=== PATIENT | female | born 1950 | race Caucasian/White ===

== ENCOUNTER 2017-07-16 15:22 | Inpatient (IN) | payer OTHER ==
[~2017-07-16] VITALS: Ht 157.5 cm; Wt 96.7 kg
[~2017-07-16 15:22] MED LIST: ASPIR 8181 M1 PO; AUGMENTIN875 MG PO; BACTRIM,SEPT1 TABLET PO; Betapace,Sorine PO; CALCIUM 500 MG1 EACH PO; CALCIUM 600 +1 EAC4 PO; COMPAZINE10 MG PO; COUMADIN5 MG PO; CUBICIN500 MG/10 IV; CYMBALTA60 MG PO; Coumadin Daily Dose PO; DAPTOMYCIN IV; DICLOFENAC SODI75 MG PO; DITROPAN5 MG PO; DULOXETINE HCL30 MG PO; Ditropan PO; FLORA-Q CAPSUL1 EACH PO; HYDROCODON-ACE1 EAC7 PO; KLOR-CON 1010 ME1 PO; LASIX20 MG PO; LISINOPRIL20 MG PO; LISINOPRIL40 MG PO; LOMOTIL TABLET1 EACH PO; LYRICA150 MG PO; LYRICA75 MG PO; METHADOSE10 MG PO; MULTI FOR HER1 EACH PO; MYCOSTATIN 100,60 ML PO; Micro-K,K-Tab,K-Dur, PO; OXYBUTYNIN CHLOR5 MG PO; OXYCONTIN20 MG PO; PRAVASTATIN SOD40 MG PO; RANITIDINE HCL150 MG PO; TOPAMAX100 MG PO; TYLENOL WITH C1 EACH PO; Topamax PO; Ultram PO; VICODIN 5-3001 EACH PO
[2017-07-16 16:38] LABS: ADD MIUA? YES; BILIRUBIN NEGATIVE; BLOOD SMALL; COLOR YELLOW ((YELLOW)); GLUCOSE (STRIP) 50; KETONES 5; LEUKOCYTES NEGATIVE; NITRITE NEGATIVE; PROTEIN (STRIP) NEGATIVE; SPECIFIC GRAVITY 1.017 (1.000-1.030); UROBILINOGEN 0.2 MG/DL (0.2-1.0)
[2017-07-16 16:45] LABS: BACTERIA RARE /HPF; EPITHELIAL CELLS RARE /HPF; GRANULAR CASTS 0-5 /LPF; MUCUS TRACE /LPF; RED BLOOD CELLS 0-5 /HPF (0-5); UCUL ADDED? YES
[2017-07-16 16:58] LABS: MCH 31.4 PG (29.0-34.0); MCHC 33.5 G/DL (30.0-36.0); MCV 93.7 FL (83-99); MEAN PLAT.VOLUME 11.2 uM^3 (9.5-12.4); NRBC (%) 0.5 /100 WBC (0-0); PLATELET COUNT 112 K/uL (156-360); RBC DIS.WIDTH-CV 13.8 % (11.8-14.6); RBC DIS.WIDTH-SD 45.8 % (39-53); RED BLOOD COUNT 3.95 M/uL (3.80-5.20)
[2017-07-16 17:10] LABS: CHLORIDE 104 mEq/L (99-109); POTASSIUM 3.7 mEq/L (3.7-5.4); SODIUM 139 mEq/L (136-147)
[2017-07-16 17:12] LABS: GLUCOSE 93 mg/dL (70-99)
[2017-07-16 17:13] LABS: ANION GAP 8 MEQ/L (2-14)
[2017-07-16 17:15] LABS: GFR ESTIMATE (CALCULATED) > 59 mL/min/
[2017-07-16 17:16] LABS: UREA NITROGEN (BUN) 26 mg/dL (9-23)
[2017-07-16 17:18] LABS: TROP-I INTERPRETATION NEGATIVE; TROPONIN-I 0.04 ng/mL (0.0-0.30)
[2017-07-16 22:10] VITALS: BP 111/74
[2017-07-17] VITALS: BP 137/80
[2017-07-17 02:10] LABS: TROP-I INTERPRETATION NEGATIVE; TROPONIN-I 0.04 ng/mL (0.0-0.30)
[2017-07-17 04:00] VITALS: BP 128/76
[2017-07-17 07:02] LABS: BASOPHIL COUNT 0.1 K/uL (0-0.1); EOSINOPHIL (%) 0 % (0-5); HEMATOCRIT 35.3 % (36.0-46.0); IMMATURE GRANULOCYTE (%) 2.9 % (0.0-0.7); IMMATURE GRANULOCYTE COUNT 0.4 K/uL; INSTRUMENT ABS NEUTROPHIL CT 11.4 K/uL; MCH 32.5 PG (29.0-34.0); MCHC 33.7 G/DL (30.0-36.0); MCV 96.4 FL (83-99); MONOCYTE (%) 8.5 % (3-12); MONOCYTE COUNT 1.3 K/uL (0-0.8); NEUTROPHIL COUNT 11.4 K/uL (1.8-6.4); NRBC (%) 0.1 /100 WBC (0-0); PLATELET COUNT 111 K/uL (156-360); RBC DIS.WIDTH-CV 14.4 % (11.8-14.6); RBC DIS.WIDTH-SD 48.8 % (39-53); RED BLOOD COUNT 3.66 M/uL (3.80-5.20); WHITE BLOOD COUNT 15.2 K/uL (4.1-10.2)
[2017-07-17 07:26] LABS: ANION GAP 9 MEQ/L (2-14); CHLORIDE 107 MEQ/L (99-109); GFR ESTIMATE (CALCULATED) > 59 mL/min/; GLUCOSE 95 mg/dL (70-99); POTASSIUM 3.8 MEQ/L (3.7-5.4); SAMPLE HEMOLYSIS CHECK 0; SAMPLE ICTERIC CHECK 0; SAMPLE LIPEMIA CHECK 0; SODIUM 142 MEQ/L (136-147); UREA NITROGEN (BUN) 21 mg/dL (9-23)
[2017-07-17 07:30] LABS: TROP-I INTERPRETATION NEGATIVE; TROPONIN-I 0.03 ng/mL (0.0-0.30)
[2017-07-17 07:43] VITALS: BP 123/65
[2017-07-17] MEDS ORDERED: PRAVASTATIN SOD40 MG PO (11:25)
[2017-07-17] MEDS ORDERED: FLUCONAZOLE100 MG PO (11:26)
[2017-07-17] MEDS ORDERED: LOMOTIL TABLET1 EACH PO (11:26)
[2017-07-17] MEDS ORDERED: PRINIVIL20 MG PO (11:27)
[2017-07-17] MEDS ORDERED: CYCLOBENZAPRINE10 MG PO (11:27)
[2017-07-17] MEDS ORDERED: CLARITIN10 M3 PO (11:28)
[2017-07-17] MEDS ORDERED: DILAUDID2 MG PO (11:30)
[2017-07-17] MEDS ORDERED: ACETAMINOPHEN500 M9 PO (11:30)
[2017-07-17 11:32] VITALS: BP 112/58
[2017-07-17 12:38] LABS: TROP-I INTERPRETATION NEGATIVE; TROPONIN-I 0.02 ng/mL (0.0-0.30)
[2017-07-17 15:17] VITALS: BP 119/75
[2017-07-17 20:00] VITALS: BP 123/74
[2017-07-18 00:37] VITALS: BP 118/63
[2017-07-18 04:31] VITALS: BP 116/66
[2017-07-18 05:59] LABS: HEMATOCRIT 34.1 % (36.0-46.0); MCH 32.7 PG (29.0-34.0); MCHC 33.4 G/DL (30.0-36.0); MCV 97.7 FL (83-99); MEAN PLAT.VOLUME 11.2 uM^3 (9.5-12.4); PLATELET COUNT 109 K/uL (156-360); RBC DIS.WIDTH-CV 14.5 % (11.8-14.6); RED BLOOD COUNT 3.49 M/uL (3.80-5.20); WHITE BLOOD COUNT 14.2 K/uL (4.1-10.2)
[2017-07-18 06:35] LABS: ANION GAP 6 MEQ/L (2-14); CHLORIDE 106 MEQ/L (99-109); GFR ESTIMATE (CALCULATED) > 59 mL/min/; GLUCOSE 92 mg/dL (70-99); POTASSIUM 3.8 MEQ/L (3.7-5.4); SAMPLE HEMOLYSIS CHECK 0; SAMPLE ICTERIC CHECK 0; SAMPLE LIPEMIA CHECK 0; SODIUM 141 MEQ/L (136-147); UREA NITROGEN (BUN) 13 mg/dL (9-23)
[2017-07-18 08:05] VITALS: BP 120/65
[2017-07-18 11:27] LABS: Estimated Average Glucose 128 mg/dL (70-123); HEMOGLOBIN A1c (GLYCOHEMOGLOB) 6.1 % HGB (Below 5.7)
[2017-07-18 16:15] VITALS: BP 123/71
[2017-07-18 19:31] VITALS: BP 125/75
[2017-07-18 23:35] VITALS: BP 140/86
[2017-07-19 04:33] VITALS: BP 117/71
[2017-07-19 06:20] LABS: HEMATOCRIT 33.6 % (36.0-46.0); MCH 31.8 PG (29.0-34.0); MCHC 32.4 G/DL (30.0-36.0); PLATELET COUNT 113 K/uL (156-360); RBC DIS.WIDTH-CV 14.4 % (11.8-14.6); RBC DIS.WIDTH-SD 49.8 % (39-53); RED BLOOD COUNT 3.43 M/uL (3.80-5.20); WHITE BLOOD COUNT 10.2 K/uL (4.1-10.2)
[2017-07-19 07:51] LABS: ANION GAP 6 MEQ/L (2-14); CHLORIDE 105 MEQ/L (99-109); GFR ESTIMATE (CALCULATED) > 59 mL/min/; GLUCOSE 88 mg/dL (70-99); POTASSIUM 3.6 MEQ/L (3.7-5.4); SAMPLE HEMOLYSIS CHECK 0; SAMPLE ICTERIC CHECK 0; SAMPLE LIPEMIA CHECK 0; SODIUM 141 MEQ/L (136-147); UREA NITROGEN (BUN) 11 mg/dL (9-23)
[2017-07-19 08:46] VITALS: BP 119/72
[2017-07-19 15:32] VITALS: BP 123/63
[2017-07-19 23:38] VITALS: BP 110/74
[2017-07-20 08:35] VITALS: BP 123/81
[2017-07-20 09:14] LABS: HEMATOCRIT 35.8 % (36.0-46.0); MCH 31.3 PG (29.0-34.0); MCHC 32.7 G/DL (30.0-36.0); MCV 95.7 FL (83-99); MEAN PLAT.VOLUME 10.8 uM^3 (9.5-12.4); RBC DIS.WIDTH-CV 13.9 % (11.8-14.6); RBC DIS.WIDTH-SD 47.3 % (39-53); RED BLOOD COUNT 3.74 M/uL (3.80-5.20)
[2017-07-20 09:15] LABS: PLATELET COUNT 163 K/uL (156-360)
[2017-07-20 16:16] VITALS: BP 132/79
[2017-07-20 23:54] VITALS: BP 123/74
[2017-07-21] MEDS ORDERED: FLUCONAZOLE200 MG PO (07:45)
[2017-07-21] MEDS ORDERED: Magic Mouthwash Garg MM (07:46)
[2017-07-21 08:24] VITALS: BP 139/84
== END 2017-07-21 14:56 | disposition home or self-care (01) | DRG 871 ==
LOC: EME 15:22 → 5SOUTH 20:44 → EDOF 20:44 → ENRESERV 20:45 → 5SOUTH 22:04
PROVIDERS: Emergency Medicine; Hospitalist; Nurse Practitioner Adult Health; Physician Assistant Medical
DX: A41.9 Sepsis, unspecified organism (principal); G93.40 Encephalopathy, unspecified; B37.0 Candidal stomatitis; K12.31 Oral mucositis (ulcerative) due to antineoplastic therapy; F33.9 Major depressive disorder, recurrent, unspecified; R65.10 Systemic inflammatory response syndrome (SIRS) of non-infectious origin without acute organ dysfunction; C50.112 Malignant neoplasm of central portion of left female breast; E86.0 Dehydration; E04.1 Nontoxic single thyroid nodule; E78.5 Hyperlipidemia, unspecified; G62.9 Polyneuropathy, unspecified; G89.29 Other chronic pain; I10 Essential (primary) hypertension; I73.9 Peripheral vascular disease, unspecified; K59.1 Functional diarrhea; N39.41 Urge incontinence; N28.1 Cyst of kidney, acquired; K74.60 Unspecified cirrhosis of liver; R13.10 Dysphagia, unspecified; R33.9 Retention of urine, unspecified; T45.1X5A Adverse effect of antineoplastic and immunosuppressive drugs, initial encounter; Z17.0 Estrogen receptor positive status [ER+]; Z88.5 Allergy status to narcotic agent; Z90.12 Acquired absence of left breast and nipple; Z90.710 Acquired absence of both cervix and uterus; Z88.6 Allergy status to analgesic agent; Z87.442 Personal history of urinary calculi; Z80.9 Family history of malignant neoplasm, unspecified; Z85.72 Personal history of non-Hodgkin lymphomas
CPT/HCPCS: 70450; 71010; 71275; 74176; 80048; 81003; 83036; 83605; 84484; 85025; 85027; 85379; 87040; 87086; 87493; 93970; 96361; 96374; 99281; 99285; C9113; J0692; J0696; J1450; J1650; J2405; J7030; J7040; J7050

== ENCOUNTER 2017-08-14 12:59 | Inpatient (IN) | payer OTHER ==
[2017-08-14] VITALS (20 sets, daily range): BP systolic 67–124; BP diastolic 36–76
[~2017-08-14] VITALS: Ht 177.8 cm; Wt 94.4 kg
[~2017-08-14 12:59] MED LIST changes: +ACETAMINOPHEN500 M9 PO; +CLARITIN10 M3 PO; +CYCLOBENZAPRINE10 MG PO; +DILAUDID2 MG PO; +FLUCONAZOLE100 MG PO; +FLUCONAZOLE200 MG PO; -MULTI FOR HER1 EACH PO; +Magic Mouthwash Garg MM; +PRINIVIL20 MG PO; +WOMEN'S DAILY1 EAC2 PO
[2017-08-14 14:06] LABS: HEMATOCRIT 28.5 % (36.0-46.0); MCH 31.7 PG (29.0-34.0); MCV 93.1 FL (83-99); NRBC (%) 0.3 /100 WBC (0-0); RBC DIS.WIDTH-CV 15.9 % (11.8-14.6); RBC DIS.WIDTH-SD 50.4 % (39-53); RED BLOOD COUNT 3.06 M/uL (3.80-5.20); WHITE BLOOD COUNT 7.9 K/uL (4.1-10.2)
[2017-08-14 14:10] LABS: INTER. NORMALIZED RATIO 1.3; PROTHROMBIN TIME 14.3 SEC (10.2-12.9)
[2017-08-14 14:12] LABS: PTT 31.6 SEC (25-37)
[2017-08-14 14:13] LABS: CHLORIDE 103 mEq/L (99-109); SODIUM 137 mEq/L (136-147)
[2017-08-14 14:16] LABS: ANION GAP 12 MEQ/L (2-14)
[2017-08-14 14:18] LABS: GFR ESTIMATE (CALCULATED) 11 mL/min/
[2017-08-14 14:19] LABS: UREA NITROGEN (BUN) 78 mg/dL (9-23)
[2017-08-14 14:24] LABS: GLUCOSE 119 mg/dL (70-99)
[2017-08-14 14:34] LABS: POTASSIUM 7.3 mEq/L (3.7-5.4); TROP-I INTERPRETATION NEGATIVE; TROPONIN-I 0.03 ng/mL (0.0-0.30)
[2017-08-14 15:00] LABS: EOSINOPHIL (%) 0 % (0-5); IMM.PLATELET FRACTION 26.7 (1-7); IMMATURE GRANULOCYTE (%) 0.8 % (0.0-0.7); IMMATURE GRANULOCYTE COUNT 0.1 K/uL; INSTRUMENT ABS NEUTROPHIL CT 5.2 K/uL; LYMPHOCYTE COUNT 2.2 K/uL (1.0-2.8); MONOCYTE (%) 6.4 % (3-12); MONOCYTE COUNT 0.5 K/uL (0-0.8); NEUTROPHIL (%) 64.8 % (45-76); NEUTROPHIL COUNT 5.2 K/uL (1.8-6.4); PLAT.SUFFICIENCY VERY DECREASED
[2017-08-14 15:02] LABS: MEAN PLAT.VOLUME 10.8 uM^3 (9.5-12.4); PLATELET COUNT 2 K/uL (156-360)
[2017-08-14 16:03] LABS: ADD MIUA? YES; BILIRUBIN NEGATIVE; BLOOD NEGATIVE; COLOR YELLOW ((YELLOW)); GLUCOSE (STRIP) NEGATIVE; KETONES NEGATIVE; LEUKOCYTES NEGATIVE; NITRITE NEGATIVE; PROTEIN (STRIP) 30; SPECIFIC GRAVITY 1.015 (1.000-1.030); UROBILINOGEN 0.2 MG/DL (0.2-1.0)
[2017-08-14 16:04] LABS: HEMATOCRIT 17.3 % (36.0-46.0); MCH 31.5 PG (29.0-34.0); MCHC 33.5 G/DL (30.0-36.0); RBC DIS.WIDTH-CV 15.9 % (11.8-14.6); RBC DIS.WIDTH-SD 51.1 % (39-53); RED BLOOD COUNT 1.84 M/uL (3.80-5.20); WHITE BLOOD COUNT 8.3 K/uL (4.1-10.2)
[2017-08-14 16:15] LABS: BACTERIA NONE SEEN /HPF; EPITHELIAL CELLS RARE /HPF; MUCUS NONE SEEN /LPF; RED BLOOD CELLS 0-5 /HPF (0-5); UCUL ADDED? NO; WHITE BLOOD CELLS 0-5 /HPF (0-5)
[2017-08-14 16:38] LABS: POINT-OF-CARE METER ID UU13113747
[2017-08-14 16:43] LABS: HEMATOCRIT 17.3 % (36.0-46.0); MCH 32.2 PG (29.0-34.0); MCHC 34.1 G/DL (30.0-36.0); MCV 94.5 FL (83-99); RBC DIS.WIDTH-CV 16.2 % (11.8-14.6); RED BLOOD COUNT 1.83 M/uL (3.80-5.20)
[2017-08-14 16:46] LABS: PLAT.SUFFICIENCY VERY DECREASED
[2017-08-14 16:50] LABS: PLATELET COUNT 3 K/uL (156-360)
[2017-08-14 17:43] LABS: HEMATOLOGY COMMENT 1 SN; PLAT.SUFFICIENCY VERY DECREASED; PLATELET COUNT 5 K/uL (156-360)
[2017-08-14 17:45] LABS: ABS NEUTROPHIL COUNT 7.8; ANISOCYTOSIS 1+; ATYPICAL LYMPHOCYTE 11.1 %; BAND NEUTROPHILS 1.9 % (0-8.0); EOSINOPHIL ABS CT 0; HYPOCHROMASIA 1+; LYMPHOCYTES 1.8 % (15.0-45.0); METAMYELOCYTES 0.9 %; SEG.NEUTROPHILS 84.3 % (46.0-76.0); SMUDGE CELLS 49.1; TEAR DROP CELLS 1+
[2017-08-14] MEDS ORDERED: FUROSEMIDE20 MG PO (17:59)
[2017-08-14] MEDS ORDERED: FLEXERIL10 MG PO (17:59)
[2017-08-14] MEDS ORDERED: PROBIOTIC1 EAC1 PO (18:00)
[2017-08-14] MEDS ORDERED: VASHE WOUND S1000 ML IR (18:00)
[2017-08-14] MEDS ORDERED: BACTROBAN OINTM22 GM TP (18:00)
[2017-08-14] MEDS ORDERED: DECADRON4 MG PO (18:01)
[2017-08-14] MEDS ORDERED: LIDOCAINE-PRIL1 EACH TP (18:02)
[2017-08-14] MEDS ORDERED: MAGNESIUM400 M1 PO (18:02)
[2017-08-14] MEDS ORDERED: BACTRIM,SEPT1 TABLET PO (18:03)
[2017-08-14 19:33] LABS: METH RESISTANT S AUREUS PCR NEGATIVE (NEGATIVE)
[2017-08-14 19:34] LABS: PROBE CHECK PASS
[2017-08-14 19:35] LABS: SPECIMEN PROCESSING CONTROL PASS
[2017-08-14 20:33] LABS: ANION GAP 9 MEQ/L (2-14); CHLORIDE 108 MEQ/L (99-109); GLUCOSE 134 mg/dL (70-99); SAMPLE HEMOLYSIS CHECK 0; SAMPLE ICTERIC CHECK 0; SAMPLE LIPEMIA CHECK 0; SODIUM 139 MEQ/L (136-147); UREA NITROGEN (BUN) 73 mg/dL (9-23)
[2017-08-14 20:40] LABS: GFR ESTIMATE (CALCULATED) 14 mL/min/; POTASSIUM 5.8 MEQ/L (3.7-5.4)
[2017-08-15] VITALS (28 sets, daily range): BP systolic 89–121; BP diastolic 45–100
[2017-08-15 02:46] LABS: EOSINOPHIL (%) 0 % (0-5); HEMATOCRIT 30.3 % (36.0-46.0); HEMATOLOGY COMMENT 1 SMEAR COMPATIBLE; IMM.PLATELET FRACTION 7.3 (1-7); IMMATURE GRANULOCYTE (%) 0.7 % (0.0-0.7); IMMATURE GRANULOCYTE COUNT 0.1 K/uL; INSTRUMENT ABS NEUTROPHIL CT 12.5 K/uL; MCH 31.8 PG (29.0-34.0); MCHC 34.3 G/DL (30.0-36.0); MCV 92.7 FL (83-99); MEAN PLAT.VOLUME 10.6 uM^3 (9.5-12.4); MONOCYTE (%) 6.5 % (3-12); MONOCYTE COUNT 1.2 K/uL (0-0.8); NEUTROPHIL COUNT 12.5 K/uL (1.8-6.4); NRBC (%) 0.1 /100 WBC (0-0); PLAT.SUFFICIENCY DECREASED; PLATELET COUNT 50 K/uL (156-360); RBC DIS.WIDTH-CV 15.7 % (11.8-14.6); RBC DIS.WIDTH-SD 51.4 % (39-53); RED BLOOD COUNT 3.27 M/uL (3.80-5.20); WHITE BLOOD COUNT 18.9 K/uL (4.1-10.2)
[2017-08-15 05:25] LABS: EOSINOPHIL (%) 0 % (0-5); HEMATOCRIT 29.6 % (36.0-46.0); IMMATURE GRANULOCYTE (%) 0.6 % (0.0-0.7); IMMATURE GRANULOCYTE COUNT 0.1 K/uL; INSTRUMENT ABS NEUTROPHIL CT 10.5 K/uL; LYMPHOCYTE COUNT 5.4 K/uL (1.0-2.8); MCH 32.1 PG (29.0-34.0); MCHC 34.5 G/DL (30.0-36.0); MCV 93.1 FL (83-99); MEAN PLAT.VOLUME 10.9 uM^3 (9.5-12.4); MONOCYTE (%) 7.8 % (3-12); MONOCYTE COUNT 1.4 K/uL (0-0.8); NEUTROPHIL (%) 60.5 % (45-76); NEUTROPHIL COUNT 10.5 K/uL (1.8-6.4); NRBC (%) 0.2 /100 WBC (0-0); PLATELET COUNT 52 K/uL (156-360); RBC DIS.WIDTH-CV 15.8 % (11.8-14.6); RBC DIS.WIDTH-SD 50.7 % (39-53); RED BLOOD COUNT 3.18 M/uL (3.80-5.20); WHITE BLOOD COUNT 17.3 K/uL (4.1-10.2)
[2017-08-15 05:54] LABS: ANION GAP 10 MEQ/L (2-14); CHLORIDE 111 MEQ/L (99-109); POTASSIUM 5.4 MEQ/L (3.7-5.4); SAMPLE HEMOLYSIS CHECK 0; SAMPLE ICTERIC CHECK 0; SAMPLE LIPEMIA CHECK 0; SODIUM 141 MEQ/L (136-147); UREA NITROGEN (BUN) 68 mg/dL (9-23)
[2017-08-15 06:41] LABS: GFR ESTIMATE (CALCULATED) 17 mL/min/; GLUCOSE 94 mg/dL (70-99); MAGNESIUM 2.2 mg/dl (1.3-2.7)
[2017-08-15 15:03] LABS: HEMATOCRIT 30.3 % (36.0-46.0); MCH 32.3 PG (29.0-34.0); MCHC 34.7 G/DL (30.0-36.0); MCV 93.2 FL (83-99); NRBC (%) 0.1 /100 WBC (0-0); PLATELET COUNT 63 K/uL (156-360); RBC DIS.WIDTH-CV 16.3 % (11.8-14.6); RBC DIS.WIDTH-SD 52.5 % (39-53); RED BLOOD COUNT 3.25 M/uL (3.80-5.20); WHITE BLOOD COUNT 14.9 K/uL (4.1-10.2)
[2017-08-15 20:56] LABS: BASE EXCESS -3.7 mEq/L (-3 to +3); BICARBONATE 18.9 mEq/L (22-26); CARBOXY HGB 1.6 % (0-5); COMMENTS - BLOOD GASES C+; FI02 21 %; METHEMOGLOBIN 1.7 % (0-1.5); PCO2 26 mm Hg (35-45); PO2 81 mm Hg (80-100); SITE RR; TOTAL RESP RATE 20 resp/min; pH 7.47 (7.35-7.45)
[2017-08-15 21:33] LABS: EOSINOPHIL (%) 0 % (0-5); HEMATOCRIT 29.3 % (36.0-46.0); IMMATURE GRANULOCYTE (%) 0.6 % (0.0-0.7); IMMATURE GRANULOCYTE COUNT 0.1 K/uL; INSTRUMENT ABS NEUTROPHIL CT 4.8 K/uL; LYMPHOCYTE COUNT 4.4 K/uL (1.0-2.8); MCH 32.1 PG (29.0-34.0); MCHC 34.1 G/DL (30.0-36.0); MCV 93.9 FL (83-99); MEAN PLAT.VOLUME 11.7 uM^3 (9.5-12.4); MONOCYTE (%) 10.7 % (3-12); MONOCYTE COUNT 1.1 K/uL (0-0.8); NEUTROPHIL (%) 45.9 % (45-76); NEUTROPHIL COUNT 4.8 K/uL (1.8-6.4); PLATELET COUNT 57 K/uL (156-360); RBC DIS.WIDTH-CV 16.7 % (11.8-14.6); RBC DIS.WIDTH-SD 53.7 % (39-53); RED BLOOD COUNT 3.12 M/uL (3.80-5.20); WHITE BLOOD COUNT 10.4 K/uL (4.1-10.2)
[2017-08-15 21:43] LABS: ANION GAP 10 MEQ/L (2-14); CHLORIDE 116 MEQ/L (99-109); POTASSIUM 4.9 MEQ/L (3.7-5.4); SAMPLE HEMOLYSIS CHECK 0; SAMPLE ICTERIC CHECK 0; SAMPLE LIPEMIA CHECK 0; SODIUM 144 MEQ/L (136-147)
[2017-08-15 21:45] LABS: INTER. NORMALIZED RATIO 1.2; PROTHROMBIN TIME 13.7 SEC (10.2-12.9)
[2017-08-15 21:52] LABS: TOTAL BILIRUBIN 1.3 MG/DL (0.0-1.0)
[2017-08-15 21:53] LABS: ALKALINE PHOSPHATASE 109 IU/L (3-129); GFR ESTIMATE (CALCULATED) 27 mL/min/; GLUCOSE 95 mg/dL (70-99); UREA NITROGEN (BUN) 55 mg/dL (9-23)
[2017-08-15 23:15] LABS: BASE EXCESS -2.4 mEq/L (-3 to +3); BICARBONATE 19.6 mEq/L (22-26); CARBOXY HGB 1.2 % (0-5); METHEMOGLOBIN 1.3 % (0-1.5); PCO2 24 mm Hg (35-45); PO2 164 mm Hg (80-100); SITE CENTAL LINE; pH 7.52 (7.35-7.45)
[2017-08-15 23:16] LABS: DEVICE VENT; FI02 40 %; MECHANICAL RATE 20 resp/min; MODE AC; PEEP 5 CM/H20; TIDAL VOLUME 450 ML; TOTAL RESP RATE 20 resp/min
[2017-08-15 23:33] LABS: COMMENTS - BLOOD GASES ABG
[2017-08-16] VITALS (33 sets, daily range): BP systolic 94–140; BP diastolic 50–111
[2017-08-16 05:25] LABS: HEMATOCRIT 25.3 % (36.0-46.0); MCH 33.6 PG (29.0-34.0); MCHC 34.8 G/DL (30.0-36.0); MCV 96.6 FL (83-99); NRBC (%) 0.3 /100 WBC (0-0); RBC DIS.WIDTH-CV 16.7 % (11.8-14.6); RBC DIS.WIDTH-SD 55.6 % (39-53); RED BLOOD COUNT 2.62 M/uL (3.80-5.20); WHITE BLOOD COUNT 6.8 K/uL (4.1-10.2)
[2017-08-16 05:53] LABS: IMM.PLATELET FRACTION 6.6 (1-7); MEAN PLAT.VOLUME 11.7 uM^3 (9.5-12.4); PLAT.SUFFICIENCY VERY DECREASED; PLATELET COUNT 48 K/uL (156-360)
[2017-08-16 06:00] LABS: ALKALINE PHOSPHATASE 89 IU/L (3-129); ANION GAP 9 MEQ/L (2-14); CHLORIDE 123 MEQ/L (99-109); GFR ESTIMATE (CALCULATED) 32 mL/min/; GLUCOSE 85 mg/dL (70-99); SAMPLE HEMOLYSIS CHECK 0; SAMPLE ICTERIC CHECK 0; SAMPLE LIPEMIA CHECK 0; SODIUM 151 MEQ/L (136-147); TOTAL BILIRUBIN 1.1 MG/DL (0.0-1.0); UREA NITROGEN (BUN) 48 mg/dL (9-23)
[2017-08-16 09:54] LABS: TROP-I INTERPRETATION NEGATIVE; TROPONIN-I 0.02 ng/mL (0.0-0.30)
[2017-08-16 12:11] LABS: C DIFF TOXIN POSITIVE (NEGATIVE)
[2017-08-16 12:27] LABS: PROBE CHECK PASS
[2017-08-16 16:15] LABS: EOSINOPHIL (%) 0 % (0-5); HEMATOCRIT 26.9 % (36.0-46.0); IMMATURE GRANULOCYTE COUNT 0.1 K/uL; INSTRUMENT ABS NEUTROPHIL CT 8.7 K/uL; LYMPHOCYTE COUNT 2.3 K/uL (1.0-2.8); MCH 33.3 PG (29.0-34.0); MCHC 34.6 G/DL (30.0-36.0); MCV 96.4 FL (83-99); MEAN PLAT.VOLUME 11.4 uM^3 (9.5-12.4); MONOCYTE (%) 8.2 % (3-12); NEUTROPHIL COUNT 8.7 K/uL (1.8-6.4); NRBC (%) 0.4 /100 WBC (0-0); RBC DIS.WIDTH-CV 16.4 % (11.8-14.6); RBC DIS.WIDTH-SD 54.2 % (39-53); RED BLOOD COUNT 2.79 M/uL (3.80-5.20); WHITE BLOOD COUNT 12.1 K/uL (4.1-10.2)
[2017-08-16 16:17] LABS: PLATELET COUNT 65 K/uL (156-360)
[2017-08-16 16:37] LABS: ANION GAP 9 MEQ/L (2-14); CHLORIDE 126 MEQ/L (99-109); GFR ESTIMATE (CALCULATED) 48 mL/min/; GLUCOSE 110 mg/dL (70-99); POTASSIUM 3.6 MEQ/L (3.7-5.4); SAMPLE HEMOLYSIS CHECK 0; SAMPLE ICTERIC CHECK 0; SAMPLE LIPEMIA CHECK 0; SODIUM 151 MEQ/L (136-147); UREA NITROGEN (BUN) 35 mg/dL (9-23)
[2017-08-16 18:38] LABS: TROP-I INTERPRETATION NEGATIVE; TROPONIN-I 0.09 ng/mL (0.0-0.30)
[2017-08-16 22:58] LABS: EOSINOPHIL (%) 0.1 % (0-5); HEMATOCRIT 27.6 % (36.0-46.0); IMMATURE GRANULOCYTE (%) 0.4 % (0.0-0.7); INSTRUMENT ABS NEUTROPHIL CT 5.4 K/uL; LYMPHOCYTE COUNT 2.9 K/uL (1.0-2.8); MCHC 33.7 G/DL (30.0-36.0); MCV 94.8 FL (83-99); MEAN PLAT.VOLUME 11.8 uM^3 (9.5-12.4); MONOCYTE (%) 10.4 % (3-12); NEUTROPHIL COUNT 5.4 K/uL (1.8-6.4); NRBC (%) 0.4 /100 WBC (0-0); PLATELET COUNT 68 K/uL (156-360); RBC DIS.WIDTH-CV 16.9 % (11.8-14.6); RBC DIS.WIDTH-SD 54.7 % (39-53); RED BLOOD COUNT 2.91 M/uL (3.80-5.20); WHITE BLOOD COUNT 9.3 K/uL (4.1-10.2)
[2017-08-17] VITALS (20 sets, daily range): BP systolic 84–140; BP diastolic 46–89
[2017-08-17 06:05] LABS: BASE EXCESS -6.1 mEq/L (-3 to +3); CARBOXY HGB 1.3 % (0-5); METHEMOGLOBIN 1.5 % (0-1.5); PCO2 25 mm Hg (35-45); PO2 103 mm Hg (80-100); SITE RR; pH 7.44 (7.35-7.45)
[2017-08-17 06:06] LABS: DEVICE 840; FI02 30 %; INSPIRATION TIME 0.8 seconds; MECHANICAL RATE 12 resp/min; MODE AC/VC+; PEEP 5 CM/H20; TIDAL VOLUME 450 ML; TOTAL RESP RATE 20 resp/min
[2017-08-17 06:53] LABS: EOSINOPHIL (%) 0 % (0-5); HEMATOCRIT 26.5 % (36.0-46.0); IMMATURE GRANULOCYTE (%) 0.6 % (0.0-0.7); INSTRUMENT ABS NEUTROPHIL CT 3.6 K/uL; LYMPHOCYTE COUNT 2.4 K/uL (1.0-2.8); MCH 33.7 PG (29.0-34.0); MCHC 34.3 G/DL (30.0-36.0); MCV 98.1 FL (83-99); MEAN PLAT.VOLUME 12.5 uM^3 (9.5-12.4); MONOCYTE (%) 10.7 % (3-12); MONOCYTE COUNT 0.7 K/uL (0-0.8); NEUTROPHIL (%) 53.4 % (45-76); NEUTROPHIL COUNT 3.6 K/uL (1.8-6.4); NRBC (%) 0.9 /100 WBC (0-0); PLATELET COUNT 58 K/uL (156-360); RBC DIS.WIDTH-CV 17.6 % (11.8-14.6); RBC DIS.WIDTH-SD 58.5 % (39-53); WHITE BLOOD COUNT 6.8 K/uL (4.1-10.2)
[2017-08-17 07:28] LABS: ALKALINE PHOSPHATASE 90 IU/L (3-129); ANION GAP 9 MEQ/L (2-14); CHLORIDE 125 MEQ/L (99-109); GFR ESTIMATE (CALCULATED) 53 mL/min/; GLUCOSE 109 mg/dL (70-99); POTASSIUM 3.7 MEQ/L (3.7-5.4); SAMPLE HEMOLYSIS CHECK 0; SAMPLE ICTERIC CHECK 0; SAMPLE LIPEMIA CHECK 0; SODIUM 150 MEQ/L (136-147); TOTAL BILIRUBIN 1.2 MG/DL (0.0-1.0); UREA NITROGEN (BUN) 30 mg/dL (9-23)
[2017-08-17 08:05] LABS: VANCOMYCIN, TROUGH 11.2 MCG/ML (10-20)
[2017-08-17 14:18] LABS: BASE EXCESS -7.1 mEq/L (-3 to +3); BICARBONATE 16.2 mEq/L (22-26); CARBOXY HGB 1.5 % (0-5); METHEMOGLOBIN 1.3 % (0-1.5); PCO2 25 mm Hg (35-45); PO2 93 mm Hg (80-100); pH 7.42 (7.35-7.45)
[2017-08-17 14:20] LABS: COMMENTS - BLOOD GASES C+; DEVICE VENT; FI02 30 %; MODE TC; PEEP 5 CM/H20; SITE RR; TOTAL RESP RATE 29 resp/min
[2017-08-17 14:49] LABS: EOSINOPHIL (%) 0 % (0-5); HEMATOCRIT 27.6 % (36.0-46.0); IMMATURE GRANULOCYTE (%) 0.6 % (0.0-0.7); INSTRUMENT ABS NEUTROPHIL CT 3.6 K/uL; LYMPHOCYTE COUNT 2.5 K/uL (1.0-2.8); MCH 32.9 PG (29.0-34.0); MCHC 33.3 G/DL (30.0-36.0); MCV 98.6 FL (83-99); MEAN PLAT.VOLUME 12.1 uM^3 (9.5-12.4); MONOCYTE (%) 11.8 % (3-12); MONOCYTE COUNT 0.8 K/uL (0-0.8); NEUTROPHIL COUNT 3.6 K/uL (1.8-6.4); NRBC (%) 0.3 /100 WBC (0-0); PLATELET COUNT 62 K/uL (156-360); RBC DIS.WIDTH-CV 17.9 % (11.8-14.6); RBC DIS.WIDTH-SD 59.1 % (39-53)
[2017-08-17 23:37] LABS: MCHC 33.8 G/DL (30.0-36.0); MCV 97.4 FL (83-99); NRBC (%) 0.4 /100 WBC (0-0); PLATELET COUNT 67 K/uL (156-360); RBC DIS.WIDTH-CV 17.8 % (11.8-14.6); RBC DIS.WIDTH-SD 58.6 % (39-53); RED BLOOD COUNT 2.67 M/uL (3.80-5.20); WHITE BLOOD COUNT 7.3 K/uL (4.1-10.2)
[2017-08-18] VITALS (18 sets, daily range): BP systolic 88–142; BP diastolic 52–97
[2017-08-18 00:20] LABS: ABS NEUTROPHIL COUNT 6.1; ANISOCYTOSIS 1+; BAND NEUTROPHILS 0.9 % (0-8.0); BASOPHILS 0.9 %; BURR CELLS 1+; EOSINOPHIL ABS CT 0; HYPOCHROMASIA 1+; INSTRUMENT ABS NEUTROPHIL CT 4.3 K/uL; LYMPHOCYTES 8.8 % (15.0-45.0); MACROCYTES 2+; MICROCYTOSIS 1+; NUCLEATED RBC'S 0.9; PLAT.SUFFICIENCY DECREASED; POIKILOCYTOSIS 1+; SEG.NEUTROPHILS 82.3 % (46.0-76.0); SMUDGE CELLS 26.5; TEAR DROP CELLS 1+
[2017-08-18 07:48] LABS: HEMATOCRIT 26.5 % (36.0-46.0); MCH 33.7 PG (29.0-34.0); MCHC 33.6 G/DL (30.0-36.0); MCV 100.4 FL (83-99); MEAN PLAT.VOLUME 11.5 uM^3 (9.5-12.4); NRBC (%) 0.5 /100 WBC (0-0); PLATELET COUNT 62 K/uL (156-360); RBC DIS.WIDTH-CV 18.9 % (11.8-14.6); RBC DIS.WIDTH-SD 61.4 % (39-53); RED BLOOD COUNT 2.64 M/uL (3.80-5.20); WHITE BLOOD COUNT 7.7 K/uL (4.1-10.2)
[2017-08-18 08:11] LABS: ANION GAP 7 MEQ/L (2-14); CHLORIDE 124 MEQ/L (99-109); GFR ESTIMATE (CALCULATED) > 59 mL/min/; GLUCOSE 104 mg/dL (70-99); POTASSIUM 3.4 MEQ/L (3.7-5.4); SAMPLE HEMOLYSIS CHECK 0; SAMPLE ICTERIC CHECK 0; SAMPLE LIPEMIA CHECK 0; SODIUM 149 MEQ/L (136-147); UREA NITROGEN (BUN) 21 mg/dL (9-23)
[2017-08-18 08:12] LABS: MAGNESIUM 1.7 mg/dl (1.3-2.7)
[2017-08-18 08:23] LABS: EOSINOPHIL (%) 0.1 % (0-5); HEMATOLOGY COMMENT 1 SN; IMMATURE GRANULOCYTE (%) 0.8 % (0.0-0.7); IMMATURE GRANULOCYTE COUNT 0.1 K/uL; INSTRUMENT ABS NEUTROPHIL CT 3.6 K/uL; LYMPHOCYTE COUNT 3.2 K/uL (1.0-2.8); MONOCYTE (%) 11.6 % (3-12); MONOCYTE COUNT 0.9 K/uL (0-0.8); NEUTROPHIL (%) 46.2 % (45-76); NEUTROPHIL COUNT 3.6 K/uL (1.8-6.4); PLAT.SUFFICIENCY DECREASED
[2017-08-18 14:49] LABS: EOSINOPHIL (%) 0 % (0-5); HEMATOCRIT 27.4 % (36.0-46.0); IMMATURE GRANULOCYTE (%) 0.9 % (0.0-0.7); IMMATURE GRANULOCYTE COUNT 0.1 K/uL; INSTRUMENT ABS NEUTROPHIL CT 3.9 K/uL; MCH 32.4 PG (29.0-34.0); MCHC 32.5 G/DL (30.0-36.0); MCV 99.6 FL (83-99); MONOCYTE (%) 11.1 % (3-12); MONOCYTE COUNT 0.9 K/uL (0-0.8); NEUTROPHIL (%) 49.7 % (45-76); NEUTROPHIL COUNT 3.9 K/uL (1.8-6.4); NRBC (%) 0.5 /100 WBC (0-0); PLATELET COUNT 71 K/uL (156-360); RBC DIS.WIDTH-SD 61.5 % (39-53); RED BLOOD COUNT 2.75 M/uL (3.80-5.20); WHITE BLOOD COUNT 7.8 K/uL (4.1-10.2)
[2017-08-19] VITALS (19 sets, daily range): BP systolic 0–148; BP diastolic 0–111
[2017-08-19 05:05] LABS: EOSINOPHIL (%) 0.1 % (0-5); HEMATOCRIT 27.1 % (36.0-46.0); IMMATURE GRANULOCYTE (%) 1.2 % (0.0-0.7); IMMATURE GRANULOCYTE COUNT 0.1 K/uL; INSTRUMENT ABS NEUTROPHIL CT 4.8 K/uL; LYMPHOCYTE COUNT 3.1 K/uL (1.0-2.8); MCH 33.7 PG (29.0-34.0); MCHC 33.9 G/DL (30.0-36.0); MCV 99.3 FL (83-99); MEAN PLAT.VOLUME 11.6 uM^3 (9.5-12.4); MONOCYTE (%) 11.5 % (3-12); NEUTROPHIL (%) 53.1 % (45-76); NEUTROPHIL COUNT 4.8 K/uL (1.8-6.4); NRBC (%) 0.4 /100 WBC (0-0); PLATELET COUNT 82 K/uL (156-360); RBC DIS.WIDTH-CV 19.1 % (11.8-14.6); RBC DIS.WIDTH-SD 60.5 % (39-53); RED BLOOD COUNT 2.73 M/uL (3.80-5.20)
[2017-08-19 05:12] LABS: INTER. NORMALIZED RATIO 1.4
[2017-08-19 05:39] LABS: ALKALINE PHOSPHATASE 95 IU/L (3-129); ANION GAP 10 MEQ/L (2-14); CHLORIDE 121 MEQ/L (99-109); GFR ESTIMATE (CALCULATED) > 59 mL/min/; GLUCOSE 115 mg/dL (70-99); POTASSIUM 3.5 MEQ/L (3.7-5.4); SAMPLE HEMOLYSIS CHECK 0; SAMPLE ICTERIC CHECK 0; SAMPLE LIPEMIA CHECK 0; SODIUM 151 MEQ/L (136-147); TOTAL BILIRUBIN 1.3 MG/DL (0.0-1.0); UREA NITROGEN (BUN) 14 mg/dL (9-23)
[2017-08-19 15:22] LABS: MAGNESIUM 1.4 mg/dl (1.3-2.7)
[2017-08-20] VITALS (20 sets, daily range): BP systolic 91–135; BP diastolic 54–92
[2017-08-20 08:27] LABS: HEMATOCRIT 28.6 % (36.0-46.0); MCH 33.4 PG (29.0-34.0); MCHC 33.6 G/DL (30.0-36.0); MCV 99.7 FL (83-99); MEAN PLAT.VOLUME 11.3 uM^3 (9.5-12.4); NRBC (%) 0.3 /100 WBC (0-0); PLATELET COUNT 95 K/uL (156-360); RBC DIS.WIDTH-CV 19.3 % (11.8-14.6); RBC DIS.WIDTH-SD 63.3 % (39-53); RED BLOOD COUNT 2.87 M/uL (3.80-5.20); WHITE BLOOD COUNT 7.3 K/uL (4.1-10.2)
[2017-08-20 08:45] LABS: ANION GAP 8 MEQ/L (2-14); CHLORIDE 119 MEQ/L (99-109); GFR ESTIMATE (CALCULATED) > 59 mL/min/; GLUCOSE 120 mg/dL (70-99); MAGNESIUM 1.5 mg/dl (1.3-2.7); POTASSIUM 3.3 MEQ/L (3.7-5.4); SAMPLE HEMOLYSIS CHECK 0; SAMPLE ICTERIC CHECK 0; SAMPLE LIPEMIA CHECK 0; SODIUM 149 MEQ/L (136-147); UREA NITROGEN (BUN) 11 mg/dL (9-23)
[2017-08-21] VITALS (21 sets, daily range): BP systolic 72–113; BP diastolic 44–87
[2017-08-21 05:46] LABS: HEMATOCRIT 28.1 % (36.0-46.0); MCH 33.7 PG (29.0-34.0); MCHC 33.5 G/DL (30.0-36.0); MCV 100.7 FL (83-99); MEAN PLAT.VOLUME 11.4 uM^3 (9.5-12.4); NRBC (%) 0.4 /100 WBC (0-0); PLATELET COUNT 111 K/uL (156-360); RBC DIS.WIDTH-CV 19.6 % (11.8-14.6); RBC DIS.WIDTH-SD 64.9 % (39-53); RED BLOOD COUNT 2.79 M/uL (3.80-5.20)
[2017-08-21 06:25] LABS: ANION GAP 7 MEQ/L (2-14); CHLORIDE 116 MEQ/L (99-109); GFR ESTIMATE (CALCULATED) > 59 mL/min/; GLUCOSE 118 mg/dL (70-99); MAGNESIUM 1.7 mg/dl (1.3-2.7); POTASSIUM 3.6 MEQ/L (3.7-5.4); SAMPLE HEMOLYSIS CHECK 0; SAMPLE ICTERIC CHECK 0; SAMPLE LIPEMIA CHECK 0; SODIUM 148 MEQ/L (136-147); UREA NITROGEN (BUN) 10 mg/dL (9-23)
[2017-08-22] VITALS (20 sets, daily range): BP systolic 84–121; BP diastolic 60–85
[2017-08-22 04:50] LABS: HEMATOCRIT 27.8 % (36.0-46.0); MCH 32.4 PG (29.0-34.0); MCV 101.1 FL (83-99); MEAN PLAT.VOLUME 11.1 uM^3 (9.5-12.4); NRBC (%) 0.3 /100 WBC (0-0); PLATELET COUNT 126 K/uL (156-360); RBC DIS.WIDTH-CV 19.7 % (11.8-14.6); RBC DIS.WIDTH-SD 67.6 % (39-53); RED BLOOD COUNT 2.75 M/uL (3.80-5.20)
[2017-08-22 05:01] LABS: CHLORIDE 116 mEq/L (99-109); POTASSIUM 4.1 mEq/L (3.7-5.4); SODIUM 145 mEq/L (136-147)
[2017-08-22 05:02] LABS: MAGNESIUM 1.3 mg/dL (1.3-2.7)
[2017-08-22 05:03] LABS: GLUCOSE 121 mg/dL (70-99)
[2017-08-22 05:05] LABS: ANION GAP 4 MEQ/L (2-14)
[2017-08-22 05:07] LABS: GFR ESTIMATE (CALCULATED) > 59 mL/min/
[2017-08-22 05:08] LABS: UREA NITROGEN (BUN) 9 mg/dL (9-23)
[2017-08-22 05:44] LABS: HDL CHOLESTEROL 15 MG/DL (Desirable>=50); LDL CHOLESTEROL 30 mg/dL (Desirable<100); NON-HDL CHOLESTEROL 55 mg/dL (Desirable<160); TOTAL CHOLESTEROL 70 mg/dL (Desirable<200); TRIGLYCERIDES 125 MG/DL (Normal: <150)
[2017-08-22 07:41] LABS: Estimated Average Glucose 103 mg/dL (70-123); HEMOGLOBIN A1c (GLYCOHEMOGLOB) 5.2 % HGB (Below 5.7)
[2017-08-23] VITALS: BP 103/67
[2017-08-23 04:00] VITALS: BP 98/59
[2017-08-23 08:00] VITALS: BP 90/66
[2017-08-23 10:34] LABS: HEMATOCRIT 31.1 % (36.0-46.0); MCH 32.8 PG (29.0-34.0); MCHC 31.8 G/DL (30.0-36.0); MEAN PLAT.VOLUME 10.5 uM^3 (9.5-12.4); PLATELET COUNT 160 K/uL (156-360); RBC DIS.WIDTH-CV 20.4 % (11.8-14.6); RED BLOOD COUNT 3.02 M/uL (3.80-5.20); WHITE BLOOD COUNT 6.7 K/uL (4.1-10.2)
[2017-08-23 10:42] LABS: EOSINOPHIL (%) 2.4 % (0-5); EOSINOPHIL COUNT 0.2 K/uL (0-0.3); IMMATURE GRANULOCYTE (%) 0.6 % (0.0-0.7); INSTRUMENT ABS NEUTROPHIL CT 2.7 K/uL; LYMPHOCYTE COUNT 3.2 K/uL (1.0-2.8); MONOCYTE (%) 8.2 % (3-12); MONOCYTE COUNT 0.6 K/uL (0-0.8); NEUTROPHIL (%) 40.2 % (45-76); NEUTROPHIL COUNT 2.7 K/uL (1.8-6.4)
[2017-08-23 10:48] LABS: ANION GAP 6 MEQ/L (2-14); CHLORIDE 111 MEQ/L (99-109); GFR ESTIMATE (CALCULATED) > 59 mL/min/; GLUCOSE 126 mg/dL (70-99); POTASSIUM 4.3 MEQ/L (3.7-5.4); SAMPLE HEMOLYSIS CHECK 0; SAMPLE ICTERIC CHECK 0; SAMPLE LIPEMIA CHECK 0; SODIUM 141 MEQ/L (136-147); UREA NITROGEN (BUN) 7 mg/dL (9-23)
[2017-08-23 10:49] LABS: MAGNESIUM 1.4 mg/dl (1.3-2.7)
[2017-08-23 12:00] VITALS: BP 111/82
[2017-08-23 16:00] VITALS: BP 131/80
[2017-08-23 20:00] VITALS: BP 102/53
[2017-08-24] VITALS (10 sets, daily range): BP systolic 97–133; BP diastolic 66–83
[2017-08-24 06:00] LABS: BASOPHIL COUNT 0.1 K/uL (0-0.1); EOSINOPHIL COUNT 0.1 K/uL (0-0.3); HEMATOCRIT 29.9 % (36.0-46.0); IMMATURE GRANULOCYTE (%) 0.6 % (0.0-0.7); LYMPHOCYTE COUNT 3.3 K/uL (1.0-2.8); MCH 32.4 PG (29.0-34.0); MCHC 31.4 G/DL (30.0-36.0); MCV 103.1 FL (83-99); MEAN PLAT.VOLUME 10.3 uM^3 (9.5-12.4); MONOCYTE (%) 12.4 % (3-12); MONOCYTE COUNT 0.8 K/uL (0-0.8); NEUTROPHIL (%) 32.1 % (45-76); NRBC (%) 0.3 /100 WBC (0-0); PLATELET COUNT 167 K/uL (156-360); RBC DIS.WIDTH-CV 20.4 % (11.8-14.6); RBC DIS.WIDTH-SD 72.8 % (39-53); WHITE BLOOD COUNT 6.4 K/uL (4.1-10.2)
[2017-08-24 06:30] LABS: ALKALINE PHOSPHATASE 94 IU/L (3-129); ANION GAP 6 MEQ/L (2-14); CHLORIDE 111 MEQ/L (99-109); GFR ESTIMATE (CALCULATED) > 59 mL/min/; POTASSIUM 4.2 MEQ/L (3.7-5.4); SAMPLE HEMOLYSIS CHECK 0; SAMPLE ICTERIC CHECK 0; SAMPLE LIPEMIA CHECK 0; SODIUM 143 MEQ/L (136-147); UREA NITROGEN (BUN) 7 mg/dL (9-23)
[2017-08-24 06:31] LABS: GLUCOSE 87 mg/dL (70-99); TOTAL BILIRUBIN 0.8 MG/DL (0.0-1.0)
[2017-08-25] VITALS: BP 100/51
[2017-08-25 02:00] VITALS: BP 96/56
[2017-08-25 04:00] VITALS: BP 108/80
[2017-08-25 06:00] VITALS: BP 98/75
[2017-08-25 08:00] VITALS: BP 118/74
[2017-08-25] MEDS ORDERED: CARDIZEM30 MG PO (08:53)
[2017-08-25] MEDS ORDERED: VANCOMYCIN125 MG/2.5 PO (09:00)
[2017-08-25 09:11] LABS: HEMATOCRIT 32.1 % (36.0-46.0); MCH 32.5 PG (29.0-34.0); MCHC 31.5 G/DL (30.0-36.0); MCV 103.2 FL (83-99); MEAN PLAT.VOLUME 10.1 uM^3 (9.5-12.4); PLATELET COUNT 215 K/uL (156-360); RBC DIS.WIDTH-CV 20.4 % (11.8-14.6); RBC DIS.WIDTH-SD 75.7 % (39-53); RED BLOOD COUNT 3.11 M/uL (3.80-5.20)
[2017-08-25 09:34] LABS: ANION GAP 9 MEQ/L (2-14); CHLORIDE 108 MEQ/L (99-109); GFR ESTIMATE (CALCULATED) > 59 mL/min/; GLUCOSE 122 mg/dL (70-99); POTASSIUM 4.4 MEQ/L (3.7-5.4); SAMPLE HEMOLYSIS CHECK 0; SAMPLE ICTERIC CHECK 0; SAMPLE LIPEMIA CHECK 0; SODIUM 140 MEQ/L (136-147); UREA NITROGEN (BUN) 10 mg/dL (9-23)
[2017-08-25 12:00] VITALS: BP 113/79
== END 2017-08-25 15:10 | disposition home health service (06) | DRG 371 ==
LOC: EME → EDBD 12:59 → EME 12:59 → 4WEST 16:36 → EDOF 16:36 → ENRESERV 16:37 → CANRESERV 16:37 → ENRESERV 17:05 → 4WEST 17:45 → ENRESERV 08-22 12:48 → CANRESERV 08-22 12:48 → 4WEST 08-22 13:04
PROVIDERS: Emergency Medicine; Hospitalist; Internal Medicine; Internal Medicine Critical Care Medicine; Internal Medicine Gastroenterology; Specialist
PROC: 30233R1 Transfusion of Nonautologous Platelets into Peripheral Vein, Percutaneous Approach (ICD-10-PCS; principal; 2017-08-14)
PROC: 30233N1 Transfusion of Nonautologous Red Blood Cells into Peripheral Vein, Percutaneous Approach (ICD-10-PCS; principal; 2017-08-14)
PROC: 0BH18EZ Insertion of Endotracheal Airway into Trachea, Via Natural or Artificial Opening Endoscopic (ICD-10-PCS; 2017-08-15)
PROC: 02HV33Z Insertion of Infusion Device into Superior Vena Cava, Percutaneous Approach (ICD-10-PCS; 2017-08-15)
PROC: 5A1945Z Respiratory Ventilation, 24-96 Consecutive Hours (ICD-10-PCS; 2017-08-15)
DX: A04.72 Enterocolitis due to Clostridium difficile, not specified as recurrent (principal); G93.41 Metabolic encephalopathy; N17.9 Acute kidney failure, unspecified; I95.9 Hypotension, unspecified; J96.01 Acute respiratory failure with hypoxia; E87.4 Mixed disorder of acid-base balance; I63.9 Cerebral infarction, unspecified; I48.91 Unspecified atrial fibrillation; E87.0 Hyperosmolality and hypernatremia; D62 Acute posthemorrhagic anemia; D69.6 Thrombocytopenia, unspecified; E87.5 Hyperkalemia; E11.610 Type 2 diabetes mellitus with diabetic neuropathic arthropathy; E11.621 Type 2 diabetes mellitus with foot ulcer; L97.428 Non-pressure chronic ulcer of left heel and midfoot with other specified severity; E11.42 Type 2 diabetes mellitus with diabetic polyneuropathy; C50.919 Malignant neoplasm of unspecified site of unspecified female breast; K74.60 Unspecified cirrhosis of liver; R04.0 Epistaxis; R21 Rash and other nonspecific skin eruption; E78.5 Hyperlipidemia, unspecified; I10 Essential (primary) hypertension; M19.90 Unspecified osteoarthritis, unspecified site; Z96.652 Presence of left artificial knee joint; E66.9 Obesity, unspecified; Z68.29 Body mass index [BMI] 29.0-29.9, adult; Z85.72 Personal history of non-Hodgkin lymphomas; Z86.718 Personal history of other venous thrombosis and embolism; Z23 Encounter for immunization; Z79.82 Long term (current) use of aspirin; S70.211D Abrasion, right hip, subsequent encounter; S80.211D Abrasion, right knee, subsequent encounter; S90.812D Abrasion, left foot, subsequent encounter; S90.811D Abrasion, right foot, subsequent encounter; S90.414D Abrasion, right lesser toe(s), subsequent encounter
CPT/HCPCS: 36415; 36600; 70450; 70553; 71010; 74176; 80048; 80048 91; 80053; 80061; 80202; 81003; 82140; 82803; 82948; 83036; 83605; 83735; 84100; 84443; 84484; 85007; 85025; 85025 91; 85027; 85610; 85730; 86850; 86900; 86901; 86920; 87040; 87070; 87205; 87493; 87641; 87801; 90686; 92507 GN; 92523 GN; 92610 GN; 93005; 93306; 93880; 94002; 94003; 94799; 95819; 97530 GO; 97530 GP; 99281; 99285; C1751; C9113; J0610; J1940; J1956; J2060; J2250; J2704; J3370; J3475; J3480; J7030; J7040; J7050; P9016; P9037; Q0164; S0028; S0030; S0164

== ENCOUNTER 2017-09-26 09:43 | Emergency (ER) | payer OTHER ==
[~2017-09-26] VITALS: Ht 157.5 cm; Wt 94.5 kg
[~2017-09-26 09:43] MED LIST changes: +BACTROBAN OINTM22 GM TP; +CARDIZEM120 MG PO; +CARDIZEM30 MG PO; +DECADRON4 MG PO; +ELIQUIS5 MG PO; +FLEXERIL10 MG PO; +FUROSEMIDE20 MG PO; +LIDOCAINE-PRIL1 EACH TP; +MAGNESIUM400 M1 PO; +PRILOSEC OTC20 MG PO; +PROBIOTIC1 EAC1 PO; +VANCOMYCIN125 MG/2.5 PO; +VASHE WOUND S1000 ML IR
[2017-09-26] MEDS ORDERED: PERCOCET 5/31 TABLET PO (11:12)
[2017-09-26 11:26] VITALS: BP 108/75
== END 2017-09-26 11:27 | disposition home or self-care (01) ==
LOC: EME 09:43
DX: S20.219A Contusion of unspecified front wall of thorax, initial encounter (principal); M54.6 Pain in thoracic spine; V49.50XA Passenger injured in collision with unspecified motor vehicles in traffic accident, initial encounter; Y92.410 Unspecified street and highway as the place of occurrence of the external cause; I48.91 Unspecified atrial fibrillation; I45.10 Unspecified right bundle-branch block; Z85.3 Personal history of malignant neoplasm of breast; Z92.21 Personal history of antineoplastic chemotherapy; Z85.72 Personal history of non-Hodgkin lymphomas; I10 Essential (primary) hypertension; Z90.49 Acquired absence of other specified parts of digestive tract; Z79.01 Long term (current) use of anticoagulants
CPT/HCPCS: 71020; 71120; 93005; 99281; 99283

== ENCOUNTER 2017-11-20 19:27 | Inpatient (IN) | payer OTHER ==
[~2017-11-20] VITALS: Ht 157.5 cm; Wt 86.0 kg
[~2017-11-20 19:27] MED LIST changes: -CALCIUM 600 +1 EAC4 PO; +CALCIUM600 M1 PO; -CARDIZEM120 MG PO; +CARTIA XT120 MG PO; +OMEPRAZOLE40 M1 PO; +PERCOCET 5/31 TABLET PO; -PRILOSEC OTC20 MG PO
[2017-11-20 21:23] LABS: ALBUMIN 2.7 g/dL (3.2-4.8); CHLORIDE 99 mEq/L (99-109); HEMOGLOBIN 9.5 G/DL (11.9-15.5); MCH 33.1 PG (29.0-34.0); MCHC 35.2 G/DL (30.0-36.0); RBC DIS.WIDTH-CV 15.5 % (11.8-14.6); RBC DIS.WIDTH-SD 53.2 % (39-53); RED BLOOD COUNT 2.87 M/uL (3.80-5.20)
[2017-11-20 21:25] LABS: GLUCOSE 110 mg/dL (70-99); MCV 94.1 FL (83-99); WHITE BLOOD COUNT 0.6 K/uL (4.1-10.2)
[2017-11-20 21:26] LABS: TOTAL PROTEIN 4.9 g/dL (6.4-8.3)
[2017-11-20 21:27] LABS: TOTAL BILIRUBIN 2.2 mg/dL (0.0-1.0)
[2017-11-20 21:29] LABS: ALKALINE PHOSPHATASE 83 IU/L (3-129); CREATININE 0.6 mg/dL (0.6-1.3); GFR ESTIMATE (CALCULATED) > 59 mL/min/
[2017-11-20 21:30] LABS: UREA NITROGEN (BUN) 15 mg/dL (9-23)
[2017-11-20 21:31] LABS: AST (GOT) 38 IU/L (2-34)
[2017-11-20 21:32] LABS: ALT (GPT) 23 IU/L (3-49); POTASSIUM 3.1 mEq/L (3.7-5.4); SODIUM 132 mEq/L (136-147)
[2017-11-20 22:43] LABS: C DIFF TOXIN POSITIVE (NEGATIVE)
[2017-11-20 22:46] LABS: ABS NEUTROPHIL COUNT 0; ANISOCYTOSIS 1+; EOSINOPHIL ABS CT 0; IMM.PLATELET FRACTION 7.2 (1-7); PLAT.SUFFICIENCY DECREASED; PLATELET COUNT 38 K/uL (156-360)
[2017-11-20] MEDS ORDERED: SINGULAIR10 MG PO (23:28)
[2017-11-20] MEDS ORDERED: LOMOTIL TABLET1 EACH PO (23:29)
[2017-11-20] MEDS ORDERED: MEDROL DOSEPAK4 MG PO (23:29)
[2017-11-21 00:40] LABS: BUFFY COAT SMEAR SEE DIFF RESULTS
[2017-11-21 02:50] VITALS: BP 110/80
[2017-11-21 06:15] LABS: HEMATOCRIT 25.7 % (36.0-46.0); MCH 33.5 PG (29.0-34.0); MCV 95.5 FL (83-99); RBC DIS.WIDTH-CV 15.9 % (11.8-14.6); RBC DIS.WIDTH-SD 54.8 % (39-53); RED BLOOD COUNT 2.69 M/uL (3.80-5.20)
[2017-11-21 06:17] LABS: WHITE BLOOD COUNT 0.4 K/uL (4.1-10.2)
[2017-11-21 06:26] LABS: IMM.PLATELET FRACTION 5.6 (1-7); PLAT.SUFFICIENCY DECREASED; PLATELET COUNT 32 K/uL (156-360)
[2017-11-21 07:23] LABS: CHLORIDE 103 MEQ/L (99-109); CREATININE 0.5 MG/DL (0.6-1.3); GFR ESTIMATE (CALCULATED) > 59 mL/min/; GLUCOSE 100 mg/dL (70-99); POTASSIUM 2.7 MEQ/L (3.7-5.4); SODIUM 136 MEQ/L (136-147); UREA NITROGEN (BUN) 13 mg/dL (9-23)
[2017-11-21 08:37] VITALS: BP 99/69
[2017-11-21 11:57] VITALS: BP 111/65
[2017-11-21 15:45] VITALS: BP 102/57
[2017-11-21 16:53] LABS: CHLORIDE 107 MEQ/L (99-109); CREATININE 0.5 MG/DL (0.6-1.3); GFR ESTIMATE (CALCULATED) > 59 mL/min/; GLUCOSE 85 mg/dL (70-99); SODIUM 140 MEQ/L (136-147); UREA NITROGEN (BUN) 13 mg/dL (9-23)
[2017-11-21 16:56] LABS: POTASSIUM 3.3 MEQ/L (3.7-5.4)
[2017-11-21 21:05] VITALS: BP 110/80
[2017-11-22 00:10] VITALS: BP 106/71
[2017-11-22 01:58] VITALS: BP 111/60
[2017-11-22 08:38] VITALS: BP 104/67
[2017-11-22 08:44] LABS: HEMATOCRIT 27.2 % (36.0-46.0); HEMOGLOBIN 9.2 G/DL (11.9-15.5); MCH 32.3 PG (29.0-34.0); MCHC 33.8 G/DL (30.0-36.0); MCV 95.4 FL (83-99); RBC DIS.WIDTH-CV 15.6 % (11.8-14.6); RBC DIS.WIDTH-SD 55.3 % (39-53); RED BLOOD COUNT 2.85 M/uL (3.80-5.20)
[2017-11-22 08:53] LABS: WHITE BLOOD COUNT 1.3 K/uL (4.1-10.2)
[2017-11-22 09:00] LABS: CHLORIDE 106 MEQ/L (99-109); CREATININE 0.5 MG/DL (0.6-1.3); GFR ESTIMATE (CALCULATED) > 59 mL/min/; GLUCOSE 71 mg/dL (70-99); POTASSIUM 3.2 MEQ/L (3.7-5.4); SODIUM 138 MEQ/L (136-147); UREA NITROGEN (BUN) 15 mg/dL (9-23)
[2017-11-22 09:07] LABS: ABS NEUTROPHIL COUNT 0.1; ANISOCYTOSIS 1+; ATYPICAL LYMPHOCYTE 1.8 %; BAND NEUTROPHILS 0.9 % (0-8.0); EOSINOPHIL ABS CT 0; EOSINOPHILS 0.9 % (0-5.0); GIANT PLATELETS 1+; IMM.PLATELET FRACTION 7.8 (1-7); LYMPHOCYTES 90.1 % (15.0-45.0); OVALOCYTES 1+; PLAT.SUFFICIENCY DECREASED; PLATELET COUNT 30 K/uL (156-360); SEG.NEUTROPHILS 3.6 % (46.0-76.0); TEAR DROP CELLS 1+
[2017-11-22 09:13] LABS: MONOCYTES 2.7 % (0-9.0)
[2017-11-22 12:45] VITALS: BP 104/68
[2017-11-22 19:50] VITALS: BP 105/62
[2017-11-23] VITALS (11 sets, daily range): BP systolic 103–119; BP diastolic 60–87
[2017-11-23 06:10] LABS: HEMOGLOBIN 8.3 G/DL (11.9-15.5); MCH 33.1 PG (29.0-34.0); MCHC 34.6 G/DL (30.0-36.0); MCV 95.6 FL (83-99); RBC DIS.WIDTH-CV 15.4 % (11.8-14.6); RBC DIS.WIDTH-SD 53.8 % (39-53); RED BLOOD COUNT 2.51 M/uL (3.80-5.20); WHITE BLOOD COUNT 2.4 K/uL (4.1-10.2)
[2017-11-23 07:00] LABS: ABS NEUTROPHIL COUNT 0.3; ANISOCYTOSIS 1+; ATYPICAL LYMPHOCYTE 8.2 %; BAND NEUTROPHILS 1.8 % (0-8.0); BASOPHILS 0.9 %; EOSINOPHIL ABS CT 0; GIANT PLATELETS 1+; IMM.PLATELET FRACTION 6.8 (1-7); LYMPHOCYTES 70.9 % (15.0-45.0); MONOCYTES 8.2 % (0-9.0); OVALOCYTES 1+; PLAT.SUFFICIENCY VERY DECREASED
[2017-11-23 07:05] LABS: PLATELET COUNT 16 K/uL (156-360)
[2017-11-23 08:14] LABS: CHLORIDE 109 MEQ/L (99-109); CREATININE 0.5 MG/DL (0.6-1.3); GFR ESTIMATE (CALCULATED) > 59 mL/min/; GLUCOSE 68 mg/dL (70-99); POTASSIUM 3.3 MEQ/L (3.7-5.4); SODIUM 139 MEQ/L (136-147); UREA NITROGEN (BUN) 16 mg/dL (9-23)
[2017-11-24] VITALS (7 sets, daily range): BP systolic 99–118; BP diastolic 54–80
[2017-11-24 04:48] LABS: APPEARANCE CLEAR ((CLEAR)); BILIRUBIN NEGATIVE; BLOOD NEGATIVE; COLOR YELLOW ((YELLOW)); GLUCOSE (STRIP) NEGATIVE; KETONES NEGATIVE; LEUKOCYTES NEGATIVE; NITRITE NEGATIVE; PROTEIN (STRIP) NEGATIVE; SPECIFIC GRAVITY 1.004 (1.000-1.030); UROBILINOGEN 0.2 MG/DL (0.2-1.0)
[2017-11-24 06:01] LABS: HEMATOCRIT 21.7 % (36.0-46.0); HEMOGLOBIN 7.4 G/DL (11.9-15.5); MCH 32.5 PG (29.0-34.0); MCHC 34.1 G/DL (30.0-36.0); MCV 95.2 FL (83-99); RBC DIS.WIDTH-CV 15.6 % (11.8-14.6); RBC DIS.WIDTH-SD 54.2 % (39-53); RED BLOOD COUNT 2.28 M/uL (3.80-5.20); WHITE BLOOD COUNT 2.4 K/uL (4.1-10.2)
[2017-11-24 06:29] LABS: CHLORIDE 110 MEQ/L (99-109); CREATININE 0.4 MG/DL (0.6-1.3); GFR ESTIMATE (CALCULATED) > 59 mL/min/; GLUCOSE 72 mg/dL (70-99); MAGNESIUM 1.1 mg/dl (1.3-2.7); POTASSIUM 3.8 MEQ/L (3.7-5.4); SODIUM 140 MEQ/L (136-147); UREA NITROGEN (BUN) 9 mg/dL (9-23)
[2017-11-24 06:36] LABS: BASOPHIL (%) 0 % (0-1); EOSINOPHIL (%) 0.4 % (0-5); IMM.PLATELET FRACTION 3.8 (1-7); LYMPHOCYTE (%) 67.1 % (15-42); LYMPHOCYTE COUNT 1.6 K/uL (1.0-2.8); MONOCYTE (%) 8.2 % (3-12); MONOCYTE COUNT 0.2 K/uL (0-0.8); NEUTROPHIL (%) 24.3 % (45-76); NEUTROPHIL COUNT 0.6 K/uL (1.8-6.4); PLAT.SUFFICIENCY DECREASED
[2017-11-24 06:41] LABS: PLATELET COUNT 36 K/uL (156-360)
[2017-11-25 03:30] VITALS: BP 99/54
[2017-11-25 06:24] LABS: BASOPHIL (%) 0.3 % (0-1); EOSINOPHIL (%) 0 % (0-5); HEMATOCRIT 21.1 % (36.0-46.0); HEMOGLOBIN 7.2 G/DL (11.9-15.5); IMMATURE GRANULOCYTE (%) 0.3 % (0.0-0.7); LYMPHOCYTE (%) 69.6 % (15-42); LYMPHOCYTE COUNT 2.3 K/uL (1.0-2.8); MCH 32.7 PG (29.0-34.0); MCHC 34.1 G/DL (30.0-36.0); MCV 95.9 FL (83-99); MONOCYTE COUNT 0.3 K/uL (0-0.8); NEUTROPHIL (%) 21.8 % (45-76); NEUTROPHIL COUNT 0.7 K/uL (1.8-6.4); RBC DIS.WIDTH-CV 15.6 % (11.8-14.6); WHITE BLOOD COUNT 3.3 K/uL (4.1-10.2)
[2017-11-25 07:05] LABS: CHLORIDE 108 MEQ/L (99-109); CREATININE 0.4 MG/DL (0.6-1.3); GFR ESTIMATE (CALCULATED) > 59 mL/min/; GLUCOSE 88 mg/dL (70-99); POTASSIUM 3.5 MEQ/L (3.7-5.4); SODIUM 142 MEQ/L (136-147); UREA NITROGEN (BUN) 6 mg/dL (9-23)
[2017-11-25 07:41] LABS: IMM.PLATELET FRACTION 4.8 (1-7); PLAT.SUFFICIENCY DECREASED; PLATELET COUNT 30 K/uL (156-360)
[2017-11-25 08:45] VITALS: BP 103/69
[2017-11-25 11:14] VITALS: BP 102/65
[2017-11-25 16:29] VITALS: BP 116/67
[2017-11-25 19:00] VITALS: BP 101/66
[2017-11-25 23:00] VITALS: BP 106/67
[2017-11-26] VITALS (7 sets, daily range): BP systolic 101–119; BP diastolic 55–67
[2017-11-26 06:18] LABS: HDL CHOLESTEROL 21 MG/DL (Desirable>=50); LDL CHOLESTEROL 29 mg/dL (Desirable<100); NON-HDL CHOLESTEROL 51 mg/dL (Desirable<160); TOTAL CHOLESTEROL 72 mg/dL (Desirable<200); TRIGLYCERIDES 108 MG/DL (Normal: <150)
[2017-11-26 09:48] LABS: HEMOGLOBIN A1c (GLYCOHEMOGLOB) 5.1 % (Below 5.7)
[2017-11-26 10:44] LABS: INTER. NORMALIZED RATIO 1.9
[2017-11-26 11:29] LABS: BASOPHIL (%) 0 % (0-1); EOSINOPHIL (%) 0 % (0-5); HEMATOCRIT 23.1 % (36.0-46.0); HEMOGLOBIN 7.7 G/DL (11.9-15.5); LYMPHOCYTE (%) 63.8 % (15-42); LYMPHOCYTE COUNT 1.4 K/uL (1.0-2.8); MCH 32.1 PG (29.0-34.0); MCHC 33.3 G/DL (30.0-36.0); MCV 96.3 FL (83-99); MONOCYTE (%) 11.9 % (3-12); MONOCYTE COUNT 0.3 K/uL (0-0.8); NEUTROPHIL (%) 24.3 % (45-76); NEUTROPHIL COUNT 0.5 K/uL (1.8-6.4); RBC DIS.WIDTH-CV 15.6 % (11.8-14.6); RBC DIS.WIDTH-SD 54.4 % (39-53); WHITE BLOOD COUNT 2.2 K/uL (4.1-10.2)
[2017-11-26 11:45] LABS: IMM.PLATELET FRACTION 6.7 (1-7); PLAT.SUFFICIENCY VERY DECREASED; PLATELET COUNT 15 K/uL (156-360)
[2017-11-27] VITALS (13 sets, daily range): BP systolic 93–120; BP diastolic 58–85
[2017-11-27 02:50] LABS: INTER. NORMALIZED RATIO 1.5
[2017-11-27 03:23] LABS: PTT 185.2 SEC (25-37)
[2017-11-27 10:24] LABS: INTER. NORMALIZED RATIO 1.4
[2017-11-27 10:26] LABS: PTT 80.2 SEC (25-37)
[2017-11-27 12:33] LABS: BASOPHIL (%) 0 % (0-1); EOSINOPHIL (%) 0 % (0-5); HEMATOCRIT 21.4 % (36.0-46.0); HEMOGLOBIN 7.2 G/DL (11.9-15.5); LYMPHOCYTE (%) 64.3 % (15-42); LYMPHOCYTE COUNT 0.9 K/uL (1.0-2.8); MCH 32.9 PG (29.0-34.0); MCHC 33.6 G/DL (30.0-36.0); MCV 97.7 FL (83-99); MONOCYTE (%) 14.3 % (3-12); MONOCYTE COUNT 0.2 K/uL (0-0.8); NEUTROPHIL (%) 21.4 % (45-76); NEUTROPHIL COUNT 0.3 K/uL (1.8-6.4); RBC DIS.WIDTH-CV 15.3 % (11.8-14.6); RBC DIS.WIDTH-SD 54.8 % (39-53); RED BLOOD COUNT 2.19 M/uL (3.80-5.20)
[2017-11-27 12:39] LABS: WHITE BLOOD COUNT 1.4 K/uL (4.1-10.2)
[2017-11-27 12:50] LABS: IMM.PLATELET FRACTION 5.3 (1-7); PLAT.SUFFICIENCY VERY DECREASED
[2017-11-27 12:56] LABS: PLATELET COUNT 22 K/uL (156-360)
[2017-11-27 18:12] LABS: INTER. NORMALIZED RATIO 1.4
[2017-11-28] VITALS (9 sets, daily range): BP systolic 105–128; BP diastolic 64–79
[2017-11-28 01:18] LABS: INTER. NORMALIZED RATIO 1.4
[2017-11-28 09:42] LABS: HEMATOCRIT 28.3 % (36.0-46.0); MCH 32.4 PG (29.0-34.0); MCHC 34.3 G/DL (30.0-36.0); MCV 94.6 FL (83-99); RBC DIS.WIDTH-CV 16.1 % (11.8-14.6); RBC DIS.WIDTH-SD 55.4 % (39-53)
[2017-11-28 09:44] LABS: INTER. NORMALIZED RATIO 1.4
[2017-11-28 09:55] LABS: HEMOGLOBIN 9.7 G/DL (11.9-15.5); RED BLOOD COUNT 2.99 M/uL (3.80-5.20); WHITE BLOOD COUNT 1.7 K/uL (4.1-10.2)
[2017-11-28 10:03] LABS: IMM.PLATELET FRACTION 3.9 (1-7); PLAT.SUFFICIENCY DECREASED
[2017-11-28 10:04] LABS: PLATELET COUNT 32 K/uL (156-360)
[2017-11-28 10:06] LABS: PTT 122.9 SEC (25-37)
[2017-11-28 11:02] LABS: CHLORIDE 104 MEQ/L (99-109); CREATININE 0.4 MG/DL (0.6-1.3); GFR ESTIMATE (CALCULATED) > 59 mL/min/; GLUCOSE 85 mg/dL (70-99); POTASSIUM 3.6 MEQ/L (3.7-5.4); SODIUM 142 MEQ/L (136-147); UREA NITROGEN (BUN) 4 mg/dL (9-23)
[2017-11-29 00:27] VITALS: BP 118/67
[2017-11-29 04:13] VITALS: BP 105/64
[2017-11-29 05:37] LABS: INTER. NORMALIZED RATIO 1.6
[2017-11-29 05:40] LABS: PTT 98.5 SEC (25-37)
[2017-11-29 08:00] VITALS: BP 124/60
[2017-11-29 12:23] LABS: BASOPHIL (%) 0 % (0-1); EOSINOPHIL (%) 0 % (0-5); HEMATOCRIT 29.8 % (36.0-46.0); HEMOGLOBIN 9.9 G/DL (11.9-15.5); IMMATURE GRANULOCYTE (%) 0.8 % (0.0-0.7); LYMPHOCYTE (%) 68.7 % (15-42); LYMPHOCYTE COUNT 1.7 K/uL (1.0-2.8); MCH 31.4 PG (29.0-34.0); MCHC 33.2 G/DL (30.0-36.0); MCV 94.6 FL (83-99); MONOCYTE (%) 13.5 % (3-12); MONOCYTE COUNT 0.3 K/uL (0-0.8); NEUTROPHIL COUNT 0.4 K/uL (1.8-6.4); RBC DIS.WIDTH-CV 15.8 % (11.8-14.6); RBC DIS.WIDTH-SD 53.9 % (39-53); RED BLOOD COUNT 3.15 M/uL (3.80-5.20); WHITE BLOOD COUNT 2.5 K/uL (4.1-10.2)
[2017-11-29 12:34] LABS: PLATELET COUNT 36 K/uL (156-360)
[2017-11-29 16:33] VITALS: BP 122/63
[2017-11-29 20:07] VITALS: BP 92/58
[2017-11-30] VITALS (7 sets, daily range): BP systolic 82–130; BP diastolic 56–72
[2017-11-30 08:09] LABS: INTER. NORMALIZED RATIO 2.1
[2017-11-30 08:12] LABS: PTT 97.5 SEC (25-37)
[2017-11-30 09:32] LABS: HEMATOCRIT 29.6 % (36.0-46.0); HEMOGLOBIN 9.8 G/DL (11.9-15.5); MCH 31.3 PG (29.0-34.0); MCHC 33.1 G/DL (30.0-36.0); MCV 94.6 FL (83-99); NRBC (%) 0.5 /100 WBC (0-0); RBC DIS.WIDTH-CV 15.5 % (11.8-14.6); RBC DIS.WIDTH-SD 53.4 % (39-53); RED BLOOD COUNT 3.13 M/uL (3.80-5.20)
[2017-11-30 10:18] LABS: IMM.PLATELET FRACTION 7.7 (1-7); PLAT.SUFFICIENCY DECREASED; PLATELET COUNT 40 K/uL (156-360)
[2017-11-30 10:21] LABS: CHLORIDE 106 MEQ/L (99-109); POTASSIUM 3.7 MEQ/L (3.7-5.4); SODIUM 143 MEQ/L (136-147)
[2017-11-30 10:27] LABS: CREATININE 0.5 MG/DL (0.6-1.3); GFR ESTIMATE (CALCULATED) > 59 mL/min/; GLUCOSE 82 mg/dL (70-99); UREA NITROGEN (BUN) 7 mg/dL (9-23)
[2017-12-01 04:41] VITALS: BP 88/54
[2017-12-01 07:26] VITALS: BP 108/73
[2017-12-01 10:58] VITALS: BP 104/58
[2017-12-01 12:23] LABS: INTER. NORMALIZED RATIO 2.6
[2017-12-01 12:26] LABS: PTT 77.1 SEC (25-37)
[2017-12-01 15:12] VITALS: BP 101/55
[2017-12-01 18:59] VITALS: BP 110/67
[2017-12-01 23:58] VITALS: BP 111/64
[2017-12-02 03:28] VITALS: BP 108/64
[2017-12-02 06:17] LABS: HEMATOCRIT 30.2 % (36.0-46.0); HEMOGLOBIN 10.2 G/DL (11.9-15.5); MCH 32.3 PG (29.0-34.0); MCHC 33.8 G/DL (30.0-36.0); MCV 95.6 FL (83-99); NRBC (%) 0.4 /100 WBC (0-0); PLATELET COUNT 70 K/uL (156-360); RBC DIS.WIDTH-CV 16.5 % (11.8-14.6); RBC DIS.WIDTH-SD 53.7 % (39-53); RED BLOOD COUNT 3.16 M/uL (3.80-5.20); WHITE BLOOD COUNT 5.3 K/uL (4.1-10.2)
[2017-12-02 06:21] LABS: PTT 80.7 SEC (25-37)
[2017-12-02 06:58] LABS: ABS NEUTROPHIL COUNT 1.1; ANISOCYTOSIS 1+; ATYPICAL LYMPHOCYTE 18.7 %; BAND NEUTROPHILS 0.9 % (0-8.0); EOSINOPHIL ABS CT 0; LYMPHOCYTES 52.4 % (15.0-45.0); MACROCYTES 1+; MONOCYTES 8.4 % (0-9.0); PLAT.SUFFICIENCY DECREASED; SEG.NEUTROPHILS 19.6 % (46.0-76.0); SMUDGE CELLS 51.4
[2017-12-02 08:40] LABS: CHLORIDE 107 MEQ/L (99-109); CREATININE 0.6 MG/DL (0.6-1.3); GFR ESTIMATE (CALCULATED) > 59 mL/min/; GLUCOSE 94 mg/dL (70-99); SODIUM 145 MEQ/L (136-147); UREA NITROGEN (BUN) 6 mg/dL (9-23)
[2017-12-02 08:48] VITALS: BP 100/60
[2017-12-02 15:32] VITALS: BP 113/58
[2017-12-03 00:17] VITALS: BP 108/75
[2017-12-03 06:55] LABS: BASOPHIL (%) 0.3 % (0-1); EOSINOPHIL (%) 0 % (0-5); HEMATOCRIT 31.3 % (36.0-46.0); HEMOGLOBIN 10.5 G/DL (11.9-15.5); IMMATURE GRANULOCYTE (%) 0.2 % (0.0-0.7); LYMPHOCYTE (%) 70.5 % (15-42); LYMPHOCYTE COUNT 4.3 K/uL (1.0-2.8); MCH 32.4 PG (29.0-34.0); MCHC 33.5 G/DL (30.0-36.0); MCV 96.6 FL (83-99); MONOCYTE (%) 11.8 % (3-12); MONOCYTE COUNT 0.7 K/uL (0-0.8); NEUTROPHIL (%) 17.2 % (45-76); NRBC (%) 0.3 /100 WBC (0-0); RBC DIS.WIDTH-CV 17.1 % (11.8-14.6); RBC DIS.WIDTH-SD 53.8 % (39-53); RED BLOOD COUNT 3.24 M/uL (3.80-5.20)
[2017-12-03 06:58] LABS: PLATELET COUNT 103 K/uL (156-360)
[2017-12-03 07:04] LABS: INTER. NORMALIZED RATIO 3.9
[2017-12-03 07:14] LABS: CHLORIDE 105 MEQ/L (99-109); CREATININE 0.6 MG/DL (0.6-1.3); GFR ESTIMATE (CALCULATED) > 59 mL/min/; GLUCOSE 83 mg/dL (70-99); POTASSIUM 4.1 MEQ/L (3.7-5.4); SODIUM 141 MEQ/L (136-147); UREA NITROGEN (BUN) 8 mg/dL (9-23)
[2017-12-03 08:04] VITALS: BP 98/58
[2017-12-03] MEDS ORDERED: VANCOMYCIN125 MG/2.5 PO (12:05)
[2017-12-03] MEDS ORDERED: COUMADIN1 MG PO (12:06)
[2017-12-03] MEDS ORDERED: ASPIR-LOW81 MG PO (12:07)
[2017-12-03] MEDS ORDERED: DIGOXIN250 MCG PO (12:07)
[2017-12-03] MEDS ORDERED: NIZORAL 2% CREA15 GM TP (12:09)
[2017-12-03 17:01] VITALS: BP 95/55
== END 2017-12-03 19:18 | DRG 871 ==
LOC: EME 19:27 → EDOF 11-21 00:51 → 4EAST 11-21 00:51 → ENRESERV 11-21 00:54 → 4EAST 11-21 02:31 → ENRESERV 11-26 14:20 → CANRESERV 11-26 14:20 → ENRESERV 11-26 14:23 → 5SOUTH 11-27 19:57
PROVIDERS: Emergency Medicine; Hospitalist; Internal Medicine; Internal Medicine Hematology & Oncology; Nurse Practitioner Adult Health
PROC: 30233R1 Transfusion of Nonautologous Platelets into Peripheral Vein, Percutaneous Approach (ICD-10-PCS; principal; 2017-11-23)
PROC: 30233N1 Transfusion of Nonautologous Red Blood Cells into Peripheral Vein, Percutaneous Approach (ICD-10-PCS; 2017-11-27)
DX: A41.9 Sepsis, unspecified organism (principal); A04.71 Enterocolitis due to Clostridium difficile, recurrent; I63.40 Cerebral infarction due to embolism of unspecified cerebral artery; G81.94 Hemiplegia, unspecified affecting left nondominant side; E86.0 Dehydration; E86.1 Hypovolemia; E87.1 Hypo-osmolality and hyponatremia; E87.6 Hypokalemia; D61.810 Antineoplastic chemotherapy induced pancytopenia; K12.31 Oral mucositis (ulcerative) due to antineoplastic therapy; T45.1X5A Adverse effect of antineoplastic and immunosuppressive drugs, initial encounter; B37.0 Candidal stomatitis; R50.81 Fever presenting with conditions classified elsewhere; C50.912 Malignant neoplasm of unspecified site of left female breast; R04.0 Epistaxis; R79.1 Abnormal coagulation profile; T45.515A Adverse effect of anticoagulants, initial encounter; E78.5 Hyperlipidemia, unspecified; G62.9 Polyneuropathy, unspecified; I36.1 Nonrheumatic tricuspid (valve) insufficiency; I10 Essential (primary) hypertension; I27.20 Pulmonary hypertension, unspecified; I48.0 Paroxysmal atrial fibrillation; L89.309 Pressure ulcer of unspecified buttock, unspecified stage; L97.519 Non-pressure chronic ulcer of other part of right foot with unspecified severity; E66.9 Obesity, unspecified; Z96.652 Presence of left artificial knee joint; Z68.37 Body mass index [BMI] 37.0-37.9, adult; Z79.01 Long term (current) use of anticoagulants; Z85.72 Personal history of non-Hodgkin lymphomas; Z86.718 Personal history of other venous thrombosis and embolism; I69.328 Other speech and language deficits following cerebral infarction
CPT/HCPCS: 70450; 70551; 71046; 73030; 74176; 80048; 80048 91; 80053; 80061; 81003; 82948; 83036; 83605; 83735; 85009; 85025; 85027; 85610; 85730; 86850; 86900; 86901; 86920; 87040; 87493; 87502; 92610 GN; 93005; 93306; 97530 GP; 99281; 99284; J0692; J1160; J2405; J3475; J3480; J7030; J7040; P9016; P9035; P9037; S0028; S0030